=== PATIENT | male | born 1975 | race Caucasian/White ===

== ENCOUNTER 2016-05-25 14:17 | Emergency (ER) | payer SELFPAY ==
[~2016-05-25] VITALS: Ht 182.9 cm; Wt 69.9 kg
[~2016-05-25 14:17] MED LIST: ALBUTEROL SULF8.5 GM IH; FLEXERIL10 MG PO; MEDROL DOSEPAK4 MG PO; NAPROSYN500 MG PO; NOHOMEMEDS; PREDNISONE20 MG PO; ULTRACET1 TABLET PO; VICODIN 5-3001 EACH PO; ZITHROMAX250 MG PO
[2016-05-25 15:36] LABS: HEMATOCRIT 42.2 % (38.0-50.0); MCH 30.9 PG (29.0-34.0); MCHC 33.6 G/DL (30.0-36.0); MCV 91.7 FL (86-99); PLATELET COUNT 131 K/uL (156-360); RBC DIS.WIDTH-CV 12.2 % (11.8-14.6); WHITE BLOOD COUNT 6.3 K/uL (4.1-10.2)
[2016-05-25 15:46] LABS: CHLORIDE 107 mEq/L (99-109); SODIUM 141 mEq/L (136-147)
[2016-05-25 15:48] LABS: GLUCOSE 85 mg/dL (70-99)
[2016-05-25 15:49] LABS: ANION GAP 10 MEQ/L (2-14)
[2016-05-25 15:50] LABS: TOTAL BILIRUBIN 0.3 mg/dL (0.0-1.0)
[2016-05-25 15:51] LABS: ADD MIUA? NO; BILIRUBIN NEGATIVE; BLOOD NEGATIVE; COLOR YELLOW ((YELLOW)); GLUCOSE (STRIP) NEGATIVE; KETONES NEGATIVE; LEUKOCYTES NEGATIVE; NITRITE NEGATIVE; PH, URINE 7.5 (5-8); PROTEIN (STRIP) NEGATIVE; SPECIFIC GRAVITY 1.013 (1.000-1.030); UCUL ADDED? NO; UROBILINOGEN 0.2 MG/DL (0.2-1.0)
[2016-05-25 15:52] LABS: ALKALINE PHOSPHATASE 51 IU/L (3-129); GFR ESTIMATE (CALCULATED) > 59 mL/min/
[2016-05-25 15:53] LABS: UREA NITROGEN (BUN) 11 mg/dL (9-23)
[2016-05-25 17:35] LABS: LIPASE 17 U/L (1.0-51.0)
[2016-05-25] MEDS ORDERED: LEVAQUIN750 MG PO (18:32)
[2016-05-25] MEDS ORDERED: PERCOCET 5/31 TABLET PO (19:03)
[2016-05-25 19:04] VITALS: BP 136/66
== END 2016-05-25 19:05 | disposition home or self-care (01) ==
LOC: EME 14:17
DX: N41.3 Prostatocystitis (principal); F17.200 Nicotine dependence, unspecified, uncomplicated
CPT/HCPCS: 71020; 74177; 80053; 81003; 83690; 85027; 99281; 99284; J0696; J1885; J7040

== ENCOUNTER 2016-07-10 20:45 | Emergency (ER) | payer SELFPAY ==
[~2016-07-10] VITALS: Ht 182.9 cm; Wt 70.3 kg
[~2016-07-10 20:45] MED LIST changes: +LEVAQUIN750 MG PO; +PERCOCET 5/31 TABLET PO
[2016-07-10 21:34] LABS: HEMATOCRIT 44.4 % (38.0-50.0); MCH 31.2 PG (29.0-34.0); MCHC 33.8 G/DL (30.0-36.0); MCV 92.3 FL (86-99); MEAN PLAT.VOLUME 11.2 uM^3 (9.0-12.4); PLATELET COUNT 145 K/uL (156-360); RBC DIS.WIDTH-CV 11.8 % (11.8-14.6); RBC DIS.WIDTH-SD 39.2 % (39-53); RED BLOOD COUNT 4.81 M/uL (4.00-5.50); WHITE BLOOD COUNT 8.4 K/uL (4.1-10.2)
[2016-07-10 21:43] LABS: CHLORIDE 105 mEq/L (99-109); POTASSIUM 3.9 mEq/L (3.7-5.4); SODIUM 141 mEq/L (136-147)
[2016-07-10 21:45] LABS: GLUCOSE 86 mg/dL (70-99)
[2016-07-10 21:47] LABS: ANION GAP 9 MEQ/L (2-14); TOTAL BILIRUBIN 0.2 mg/dL (0.0-1.0)
[2016-07-10 21:49] LABS: ALKALINE PHOSPHATASE 49 IU/L (3-129); GFR ESTIMATE (CALCULATED) > 59 mL/min/
[2016-07-10 21:50] LABS: UREA NITROGEN (BUN) 9 mg/dL (9-23)
[2016-07-10 22:09] LABS: ADD MIUA? NO; BILIRUBIN NEGATIVE; BLOOD NEGATIVE; COLOR COLORLESS ((YELLOW)); GLUCOSE (STRIP) NEGATIVE; KETONES NEGATIVE; LEUKOCYTES NEGATIVE; NITRITE NEGATIVE; PROTEIN (STRIP) NEGATIVE; SPECIFIC GRAVITY 1.003 (1.000-1.030); UCUL ADDED? NO; UROBILINOGEN 0.2 MG/DL (0.2-1.0)
[2016-07-10] MEDS ORDERED: MOTRIN800 MG PO (23:00)
[2016-07-10] MEDS ORDERED: PYRIDIUM200 MG PO (23:00)
[2016-07-10] MEDS ORDERED: ULTRACET1 TABLET PO (23:00)
[2016-07-10] MEDS ORDERED: CIPRO500 MG PO ×2 (23:00→23:39)
[2016-07-10] MEDS ORDERED: NORCO 7.5/321 TABLET PO (23:51)
[2016-07-11 00:24] VITALS: BP 119/76
== END 2016-07-11 00:28 | disposition home or self-care (01) ==
LOC: RME 20:45 → EME 20:45 → RME 07-11 00:28
DX: N41.9 Inflammatory disease of prostate, unspecified (principal); N30.90 Cystitis, unspecified without hematuria; F17.200 Nicotine dependence, unspecified, uncomplicated
CPT/HCPCS: 80053; 81003; 85027; 87086; 99281; 99285; J1100; J1885

== ENCOUNTER 2017-05-04 21:01 | Emergency (ER) | payer SELFPAY ==
[~2017-05-04] VITALS: Ht 182.9 cm; Wt 68.1 kg
[~2017-05-04 21:01] MED LIST changes: +CIPRO500 MG PO; +KEFLEX500 MG PO; +MOTRIN800 MG PO; +NORCO 7.5/321 TABLET PO; +PYRIDIUM200 MG PO
[2017-05-05 00:18] VITALS: BP 114/82
== END 2017-05-05 00:21 | disposition home or self-care (01) ==
LOC: EME 21:01
DX: S02.40DA Maxillary fracture, left side, initial encounter for closed fracture (principal); S00.432A Contusion of left ear, initial encounter; Y04.0XXA Assault by unarmed brawl or fight, initial encounter; R11.2 Nausea with vomiting, unspecified; R42 Dizziness and giddiness; F17.200 Nicotine dependence, unspecified, uncomplicated
CPT/HCPCS: 70450; 70486; 99281; 99284

== ENCOUNTER 2017-05-27 21:26 | Emergency (ER) | payer OTHER ==
[~2017-05-27] VITALS: Ht 182.9 cm; Wt 67.3 kg
[2017-05-28 00:13] LABS: HEMATOCRIT 42.1 % (38.0-50.0); HEMOGLOBIN 13.6 G/DL (12.5-16.6); MCH 30.2 PG (29.0-34.0); MCHC 32.3 G/DL (30.0-36.0); MCV 93.6 FL (86-99); RBC DIS.WIDTH-CV 12.1 % (11.8-14.6); RBC DIS.WIDTH-SD 41.5 % (39-53); WHITE BLOOD COUNT 8.3 K/uL (4.1-10.2)
[2017-05-28 00:24] LABS: ALBUMIN 4.6 G/DL (3.2-4.8); CHLORIDE 104 MEQ/L (99-109); DIRECT BILIRUBIN 0.1 mg/dL (0.0-0.3); POTASSIUM 4.6 MEQ/L (3.7-5.4); SODIUM 140 MEQ/L (136-147); TOTAL BILIRUBIN 0.5 MG/DL (0.0-1.0)
[2017-05-28 00:30] LABS: ALKALINE PHOSPHATASE 44 IU/L (3-129); ALT (GPT) 15 IU/L (3-49); AST (GOT) 20 IU/L (2-34); CREATININE 0.8 MG/DL (0.6-1.3); GFR ESTIMATE (CALCULATED) > 59 mL/min/ (58.99-99999); GLUCOSE 97 mg/dL (70-99); LIPASE 13 U/L (1.0-51.0); TOTAL PROTEIN 6.9 G/DL (6.4-8.3); UREA NITROGEN (BUN) 16 mg/dL (9-23)
[2017-05-28] MEDS ORDERED: BENTYL10 MG PO (00:36)
[2017-05-28] MEDS ORDERED: ZOFRAN4 MG PO (00:36)
[2017-05-28 00:40] LABS: PLAT.SUFFICIENCY DECREASED; PLATELET COUNT 142 K/uL (156-360)
[2017-05-28 02:00] VITALS: BP 125/92
== END 2017-05-28 02:01 | disposition home or self-care (01) ==
LOC: RME 21:26 → EME 21:26 → RME 05-28 02:01
PROVIDERS: Physician Assistant
DX: R11.2 Nausea with vomiting, unspecified (principal); F17.200 Nicotine dependence, unspecified, uncomplicated
CPT/HCPCS: 80048; 80076; 81003; 83690; 85027; 99281; 99285; J2405; J7030